=== PATIENT | male | born 1950 | race Caucasian/White ===

== ENCOUNTER 2018-02-19 11:54 | Emergency (ER) | payer OTHER ==
[~2018-02-19] VITALS: Ht 177.8 cm; Wt 91.2 kg
[2018-02-19 12:02] VITALS: BP 183/92
== END 2018-02-19 12:54 | disposition home or self-care (01) ==
LOC: ER 11:59
DX: M23.91 Unspecified internal derangement of right knee (principal); M25.461 Effusion, right knee
CPT/HCPCS: 73562